=== PATIENT | male | born 1990 | race Two or more races ===

== ENCOUNTER 2022-12-29 00:32 | Emergency (ER) | payer SELFPAY ==
[~2022-12-29] VITALS: Ht 167.6 cm; Wt 75.0 kg
[2022-12-29] MEDS ORDERED: TETANUS-DIPTH-ACEL PERTUSSIS 0.5ML SYR Tdap IM ONE (02:30)
[2022-12-29 02:41] VITALS: BP 124/87
== END 2022-12-29 03:02 | disposition home or self-care (01) ==
LOC: ER 00:32 → EDBD 00:32 → ER 02:58
DX: S01.81XA Laceration without foreign body of other part of head, initial encounter (principal); S40.812A Abrasion of left upper arm, initial encounter; Y08.89XA Assault by other specified means, initial encounter; Y93.89 Activity, other specified; Y92.524 Gas station as the place of occurrence of the external cause; Y99.8 Other external cause status
CPT/HCPCS: 12011; 90471; 90715